=== PATIENT | male | born 1970 | race Caucasian/White ===

== ENCOUNTER 2022-05-17 17:15 | Emergency (ER) | payer BC ==
[2022-05-17] MEDS ORDERED: Sodium Chloride 0.9% 10 ML Syringe FLUSH PRN (18:04)
[2022-05-17] MEDS ORDERED: Iopamidol 612 MG/ML 50 ML SDV IVPUSH ONE (20:01)
[2022-05-17] MEDS ORDERED: Iopamidol 612 MG/ML 100 ML Bottle IVPUSH ONE (20:01)
[2022-05-17 21:47] VITALS: BP 135/94; PULSE 72
== END 2022-05-17 22:00 | disposition home or self-care (01) ==
LOC: JD.ED 17:15
DX: R10.13 Epigastric pain (principal); Z88.0 Allergy status to penicillin; Z88.8 Allergy status to other drugs, medicaments and biological substances
CPT/HCPCS: 36415; 74177; 76705; 80053; 81001; 83690; 85025; 86140; 99284; J3490; Q9967; 99283

== ENCOUNTER 2024-10-08 06:41 | Day surgery (SDC) | payer BC ==
[~2024-10-08 06:41] MED LIST: Dexamethasone 4 MG/ML 5 ML MDV ONE; Lidocaine 1% 5 ML VIAL ONE; Midazolam 1 MG/ML 2 ML SDV ONE; Ondansetron 4 MG/2 ML SDV ONE; Propofol 200 MG/20 ML SDV ONE; dexmedeTOMIDine HCl 200 MCG/2 ML SDV ONE; fentaNYL 250 MCG/5 ML SDV ONE
[2024-10-08] MEDS ORDERED: HYDROmorphone 0.5 MG/0.5 ML Syringe ONE ×2 (06:45)
[2024-10-08] MEDS: Clindamycin Phosphate in D5W 900 MG in Premix Bag 1 BAG IV ONE (06:45)
[2024-10-08] MEDS ORDERED: Rocuronium 50 MG/5 ML Vial ONE (07:10)
[2024-10-08] MEDS: Bupivacaine 0.5% 30 ML SDV ONE (07:33)
[2024-10-08] MEDS: EPINEPHrine 1 MG/ML SDV ONE (07:33)
[2024-10-08] MEDS ORDERED: Labetalol 100 MG/20 ML MDV ONE (07:33)
[2024-10-08] MEDS ORDERED: ePHEDrine 50 MG/ML SDV ONE (07:33)
[2024-10-08] MEDS ORDERED: Sugammadex Sodium 200 MG/2 ML VIAL IV ONE (07:36)
[2024-10-08] MEDS ORDERED: Ondansetron 4 MG/2 ML SDV IVPUSH PRN (07:38)
[2024-10-08] MEDS ORDERED: droPERidol 5 MG/2 ML SDV IVPUSH PRN (07:38)
[2024-10-08] MEDS ORDERED: HYDROmorphone 0.5 MG/0.5 ML Syringe IVPUSH PRN (07:38)
[2024-10-08] MEDS ORDERED: Ketorolac 30 MG/ML SDV ONE (08:10)
[2024-10-08] MEDS ORDERED: oxyCODONE 5 MG Tab PO PRN (08:24)
[2024-10-08 10:17] VITALS: BP 135/80; PULSE 80
== END 2024-10-08 10:05 ==
LOC: JD.SDS 06:41
PROVIDERS: ATTEND Surgery
DX: K42.0 Umbilical hernia with obstruction, without gangrene (principal); I10 Essential (primary) hypertension; Z79.899 Other long term (current) drug therapy
CPT/HCPCS: J0171; J0665; J0736; J1100; J1171; J1885; J1920; J2250; J2405; J2704; J3010; J3490